=== PATIENT | male | born 1960 | race Caucasian/White ===

== ENCOUNTER → 2017-05-31 | Outpatient (CLI) | payer OTHER ==
[~2017-05-31] MED LIST: ASPI325T45 PO; LPT20 PO; OXYC-57 PO; OXYSR10 PO; SNK PO
[2017-05-31 16:40] LABS: BASO % 0.4 %; BASO ABS # 0.03 K/uL (0-0.2); EOS % 1.9 %; EOS ABS # 0.13 K/uL (0-0.5); HEMATOCRIT 44.4 % (42-52); IG# 0.02 K/uL (0.00-0.02); LYMPH % 38.5 %; LYMPH ABS # 2.65 K/uL (1.2-3.4); MEAN CELL VOLUME 87.4 fL (80-100); MEAN CORPUSCULAR HEMOGLOBIN 29.5 pg (25-34); MEAN CORPUSCULAR HGB CONC 33.8 g/dl (32-36); MEAN PLATELET VOLUME 10.1 fL (7.4-10.4); MONO % 7.4 %; MONO ABS # 0.51 K/uL (0.11-0.59); NEUT % 51.5 %; NEUT ABS # 3.55 K/uL (1.4-6.5); PLATELET COUNT 357 K/uL (130-400); RED CELL DISTRIBUTION WIDTH CV 12.3 % (11.5-14.5); RED CELL DISTRIBUTION WIDTH SD 39.5 fL (36.4-46.3); WHITE BLOOD COUNT 6.89 K/uL (4.8-10.8)
== END | disposition home or self-care (01) ==
LOC: C.LAB 14:40
PROVIDERS: ATTEND Orthopaedic Surgery Sports Medicine
DX: M25.511 Pain in right shoulder (principal)

== ENCOUNTER → 2017-06-03 | Outpatient (CLI) | payer OTHER ==
--- NOTE | 2017-06-03 14:11 | DIAGNOSTIC IMAGING REPORT ---
BONE SCAN 3 PHASE LIMITED CLINICAL HISTORY: RIGHT SHOULDER PAIN,TOTAL SHOULDER REPLACEMENT TECHNIQUE: Multiple phase evaluation following administration of 27.5 mCi technetium 99m MDP. COMPARISON STUDY: None FINDINGS: Dynamic flow images show unremarkable flow characteristics throughout. There is no significant area of hyperemia. Blood pool images showed no abnormal activity characteristics over the shoulder or upper chest regions. Planar images demonstrate a moderate increase in activity about the patient's right shoulder prosthetic at the level of the humeral head. This is best seen in our 80 projection. Possibility of early loosening given the patient's timeframe from surgery must be considered. Degenerative changes of acromioclavicular joint are noted. No additional focus of significant increased activity is seen. IMPRESSION: Findings suggesting potential early loosening of the patient's right shoulder arthroplasty at the level of the humeral head and neck medially. Mild degenerative change and/or activity right acromioclavicular joint. The above report was generated using voice recognition software. It may contain grammatical, syntax or spelling errors. Electronically signed by: Charlie Duvall M.D. 06/03/2017 2:09 PM Dictated Date/Time: 06/03/2017 2:06 PM
== END | disposition home or self-care (01) ==
LOC: C.NUCL 09:56
PROVIDERS: ATTEND Orthopaedic Surgery Sports Medicine
DX: T84.84XA Pain due to internal orthopedic prosthetic devices, implants and grafts, initial encounter (principal); Y83.1 Surgical operation with implant of artificial internal device as the cause of abnormal reaction of the patient, or of later complication, without mention of misadventure at the time of the procedure